=== PATIENT | male | born 1965 | race Caucasian/White ===

== ENCOUNTER 2016-10-05 10:38 | Emergency (ER) | payer OTHER ==
[2016-10-05 13:05] VITALS: BP 115/92
--- NOTE | 2016-10-05 13:09 | UC ---
Back Pain HPI - HPI Summary HPI Summary: INJURED LOW BACK AT WORK 05/2016. PAIN NEVER WENT AWAY. IS CONSTANT. ABOUT A MONTH AGO BEGAN TO RADIATE DOWN LEFT LEG. NO NUMBNESS/TINGLING OR SADDLE ANESTHESIA. - History of Current Complaint Chief Complaint: UCBackPain Stated Complaint: BACK PAIN WITH LEG PAIN Time Seen by Provider: 10/05/16 13:02 Hx Obtained From: Patient Onset/Duration: Sudden Onset, Lasting Weeks, Still Present Timing: Constant Severity Initially: Moderate Severity Currently: Moderate Pain Intensity: 6 Pain Scale Used: 0-10 Numeric Back Pain: Is Discrete @ - LOW BACK Character: Sharp, Aching Aggravating: Movement Alleviating: Rest Associated Signs And Symptoms: Positive: Negative - Allergies/Home Medications Allergies/Adverse Reactions: Allergies Allergy/AdvReac Type Severity Reaction Status Date / Time Penicillins Allergy Hives Verified 06/20/16 09:03 PMH/Surg Hx/FS Hx/Imm Hx Previously Healthy: Yes - Surgical History Surgical History: Yes Surgery Procedure, Year, and Place: bx of right side of face 2005 - Family History Known Family History: Positive: Hypertension - Social History Alcohol Use: Occasionally Substance Use Type: None Smoking Status (MU): Never Smoked Tobacco Review of Systems Constitutional: Negative Skin: Negative Respiratory: Negative Cardiovascular: Negative Gastrointestinal: Negative Musculoskeletal: Arthralgia, Myalgia All Other Systems Reviewed And Are Negative: Yes Physical Exam Triage Information Reviewed: Yes Appearance: Well-Appearing, No Pain Distress, Well-Nourished Vital Signs: Initial Vital Signs Temp 97.8 F 10/05/16 13:02 Pulse 91 10/05/16 13:02 Resp 16 10/05/16 13:02 BP 115/92 10/05/16 13:02 Pulse Ox 99 10/05/16 13:02 Vital Signs Reviewed: Yes Eyes: Positive: Conjunctiva Clear ENT: Positive: Hearing grossly normal Neck: Positive: Supple Respiratory: Positive: No respiratory distress, No accessory muscle use Cardiovascular: Positive: Pulses Normal Abdomen Description: Positive: Soft Musculoskeletal: Positive: ROM Intact, No Edema Neurological: Positive: Alert Psychological: Positive: Age Appropriate Behavior Skin: Negative: rashes Diagnostics - Radiology LUMBARSACRAL XRAYS Xray Interpretation: No Acute Changes Radiology Interpretation Completed By: Radiologist Back Pain Course/Dx - Differential Dx/Diagnosis Provider Diagnoses: LOW BACK PAIN Discharge - Discharge Plan Condition: Stable Disposition: HOME Patient Education Materials: Low Back Strain (ED) Referrals: Debra Membreno MD [Primary Care Provider] - If Needed Additional Instructions: LUMBARSACRAL XRAY TODAY UNREMARKABLE PHYSICAL THERAPY REFERRAL: You have been prescribed physical therapy. Treatments may include stretching, exercise, application of heat or cold, and other modalities. After an injury, PT can reduce swelling and pain. In recovery, PT is used to restore mobility and strength. Your specific treatment goals are: Reduction of Swelling (EGS, US, ice as needed) __X__ Pain Reduction (EGS, US, ice as needed) TENS Pack Fitting and Instruction Wound Hydrotherapy __X__ Preservation of Mobility Druze of Mobility __X__ Strength Druze Work or Sports Hardening This instruction sheet also serves as your PHYSICAL THERAPY REFERRAL! Please take it with you to the therapist, so he/she will be aware of your diagnosis and treatment plan. You may see the physical therapist of your choice for these treatments, but may wish to check with your insurance to be sure the provider you select is covered. It's important to see the doctor to whom you have been referred for follow up.
--- NOTE | 2016-10-05 13:43 | RAD ---
INDICATION: Back pain COMPARISON: None TECHNIQUE: Routine PA, lateral, and oblique imaging was performed . FINDINGS: Bones: There are no acute bony findings. There are no significant osteoarthritic findings. There is minor anterior vertebral spurring at L3-L5 Alignment: Normal Disc spaces: The disc spaces are well-maintained Soft tissues: There are no soft tissue abnormalities. IMPRESSION: NO SIGNIFICANT OSTEOARTHRITIC FINDINGS.
== END 2016-10-05 14:00 | disposition home or self-care (01) ==
LOC: UCEAST 10:38
DX: M54.5 Low back pain (principal); Z88.0 Allergy status to penicillin
CPT/HCPCS: 72110; 99211; G0463

== ENCOUNTER 2017-07-19 18:15 | Emergency (ER) | payer BC ==
[2017-07-19 18:32] VITALS: BP 136/89
--- NOTE | 2017-07-19 18:33 | UC ---
Skin Complaint HPI - HPI Summary HPI Summary: Tic on left lower leg May have been attached 12-26 hour - History of Current Complaint Chief Complaint: UCSkin Time Seen by Provider: 07/19/17 18:27 Stated Complaint: TICK BITE Hx Obtained From: Patient Onset/Duration: Sudden Onset Timing: Constant Onset Severity: Mild Current Severity: None Pain Intensity: 0 Pain Scale Used: 0-10 Numeric Location: Discrete - left lopwer leg Aggravating Factor(s): Nothing Alleviating Factor(s): Nothing Associated Signs & Symptoms: Positive: Negative Related History: Insect Bite/Sting - tick left lower leg - Allergy/Home Medications Allergies/Adverse Reactions: Allergies Allergy/AdvReac Type Severity Reaction Status Date / Time Amoxicillin Allergy Hives Verified 12/17/16 09:13 Ciprofloxacin Allergy Dizziness Verified 12/17/16 09:13 Penicillins Allergy Hives Verified 06/20/16 09:03 Review of Systems Constitutional: Negative Skin: Negative Eyes: Negative ENT: Negative Respiratory: Negative Cardiovascular: Negative Gastrointestinal: Negative Genitourinary: Negative Motor: Negative Neurovascular: Negative Musculoskeletal: Negative Neurological: Negative Psychological: Negative Is Patient Immunocompromised?: No All Other Systems Reviewed And Are Negative: Yes PMH/Surg Hx/FS Hx/Imm Hx Previously Healthy: Yes - Surgical History Surgical History: Yes Surgery Procedure, Year, and Place: bx of right side of face 2005 - Family History Known Family History: Positive: Hypertension - Social History Occupation: Employed Full-time Lives: With Family Alcohol Use: Occasionally Substance Use Type: None Smoking Status (MU): Never Smoked Tobacco Physical Exam Triage Information Reviewed: Yes Appearance: Well-Appearing, No Pain Distress, Well-Nourished Vital Signs: Initial Vital Signs Temp 97.9 F 07/19/17 18:28 Pulse 95 07/19/17 18:28 Resp 18 07/19/17 18:28 BP 136/89 07/19/17 18:28 Pulse Ox 99 07/19/17 18:28 Vital Signs Reviewed: Yes Eye Exam: Normal Eyes: Positive: Conjunctiva Clear ENT Exam: Normal ENT: Positive: Normal ENT inspection, Hearing grossly normal. Negative: Nasal congestion, Nasal drainage, Trismus, Muffled/hoarse voice Dental Exam: Normal Neck exam: Normal Neck: Positive: Supple, Nontender, No Lymphadenopathy Respiratory Exam: Normal Respiratory: Positive: Chest non-tender, No respiratory distress, No accessory muscle use Cardiovascular Exam: Normal Cardiovascular: Positive: RRR, No Murmur, Pulses Normal, Brisk Capillary Refill Musculoskeletal Exam: Normal Musculoskeletal: Positive: Strength Intact, ROM Intact, No Edema Neurological Exam: Normal Neurological: Positive: Alert, Muscle Tone Normal Psychological Exam: Normal Psychological: Positive: Normal Response To Family Skin Exam: Normal Skin: Positive: rashes Course/Dx - Course Course Of Treatment: one time dose of Doxy, observe for s/s of Lyme follow with pcp prn - Diagnoses Provider Diagnoses: Tick exposure Lyme PEP Discharge - Discharge Plan Condition: Stable Disposition: HOME Prescriptions: Doxycycline (Monohydrate) [Doxycycline Monohydrate] 100 mg PO ONCE #2 cap Patient Education Materials: Tick Bite (ED) Referrals: Katy WERNER,Eder Dumont [Primary Care Provider] - If Needed
== END 2017-07-19 18:40 | disposition home or self-care (01) ==
LOC: UCEAST 18:15
DX: S80.862A Insect bite (nonvenomous), left lower leg, initial encounter (principal); W57.XXXA Bitten or stung by nonvenomous insect and other nonvenomous arthropods, initial encounter; Y93.9 Activity, unspecified; Y92.9 Unspecified place or not applicable; Z88.1 Allergy status to other antibiotic agents; Z88.0 Allergy status to penicillin
CPT/HCPCS: 99212; G0463